=== PATIENT | male | born 1950 | race Caucasian/White ===

== ENCOUNTER → 2022-08-09 | Outpatient (CLI) | payer MEDICARE ==
[2022-08-09 13:12] LABS: HEMOGLOBIN A1C 7.8 % (4.0-6.0)
[2022-08-09 13:38] LABS: ALBUMIN 2.8 g/dL (3.5-5.0); CREATININE 0.7 mg/dL (0.5-1.5); POTASSIUM 4.2 mmol/L (3.5-5.1); TOTAL PROTEIN, SERUM 7.2 g/dL (6.0-8.3)
== END | disposition home or self-care (01) ==
LOC: LAB 11:41
PROVIDERS: ATTEND Psychiatry & Neurology Psychiatry
DX: F31.81 Bipolar II disorder (principal); Z79.899 Other long term (current) drug therapy
CPT/HCPCS: 80164; 80053; 83036; 36415; G0480; 80299; 80335